=== PATIENT | female | born 1995 | race Asian ===

== ENCOUNTER 2017-08-09 19:22 | Emergency (ER) | payer OTHER ==
[~2017-08-09] VITALS: Ht 170.2 cm; Wt 75.8 kg
[2017-08-09 19:27] VITALS: TEMP 36.9; Ht 170.2 cm; Wt 75.8 kg
[2017-08-09] MEDS ORDERED: SODIUM CHLORIDE 0.9% 1000ML 1,000 ML IV STA (20:52)
[2017-08-09 21:14] LABS: MANUAL MICROSCOPIC REQUIRED? NO; REVIEW REQ? YES; URINE APPEARANCE CLEAR (CLEAR); URINE BILIRUBIN NEG (NEG); URINE COLOR YELLOW; URINE EPITHELIAL CELL AUTO >30 /lpf (0-5); URINE NITRITE NEG (NEG); URINE SPECIFIC GRAVITY 1.014 (1.000-1.030); UROBILINOGEN NEG (NEG); ZZUR CULT IF INDIC CLEAN CATCH NO
[2017-08-09 21:28] LABS: BASO % 0.4 %; BASO ABS # 0.03 K/uL (0-0.2); COMPLETE YES; EOS % 2.8 %; HEMATOCRIT 38.8 % (37-47); IG% 0.1 %; LYMPH ABS # 2.51 K/uL (1.2-3.4); MEAN CELL VOLUME 90.9 fL (80-100); MEAN CORPUSCULAR HEMOGLOBIN 31.4 pg (25-34); MEAN CORPUSCULAR HGB CONC 34.5 g/dl (32-36); MEAN PLATELET VOLUME 10.5 fL (7.4-10.4); NEUT % 57.7 %; PLATELET COUNT 198 K/uL (130-400); RED BLOOD COUNT 4.27 M/uL (4.2-5.4); WHITE BLOOD COUNT 7.61 K/uL (4.8-10.8)
[2017-08-09 21:53] LABS: ALT/SGPT 18 U/L (12-78); BLOOD UREA NITROGEN 10 mg/dl (7-18); BUN/CREATININE RATIO 12.8 (10-20); CALCIUM 8.8 mg/dl (8.5-10.1); CARBON DIOXIDE 27 mmol/L (21-32); CHLORIDE 107 mmol/L (98-107); CREATININE 0.75 mg/dl (0.60-1.20); GLUCOSE 95 mg/dl (70-99); POTASSIUM 3.7 mmol/L (3.5-5.1); SODIUM 140 mmol/L (136-145)
[2017-08-09 21:56] LABS: ALKALINE PHOSPHATASE 50 U/L (45-117); AST/SGOT 14 U/L (15-37)
--- NOTE | 2017-08-10 00:38 | EMERGENCY ROOM VISIT NOTE ---
History Report prepared by Maureen: Samantha Moeller Under the Supervision of: Dr. Cricket Garcia M.D. First contact with patient: 20:44 Chief Complaint: ABDOMINAL PAIN Stated Complaint: ABDOMINAL PAIN Nursing Triage Summary: pt c/o abd pain started last week, History of Present Illness The patient is a 22 year old female who presents to the Emergency Room with complaints of waxing and waning abdominal pain starting last week. She describes the pain as cramping. She decided to present to the ED today because the pain worsened today around 1830. Upon arrival the pain had improved. She currently only has some discomfort. She has never experienced these symptoms before. She notes that her last episode of abdominal pain occurred after eating this afternoon. It was not food out of the ordinary. She also had a headache and felt fatigued. She then has a bowel movement which was normal. She denies any fever, chills, cough, congestion, nausea, vomiting, diarrhea, dysuria, or back pain. She has been feeling well otherwise. She is a [employer] student. She is not sexually active and denies any chance of . Her last menstrual period started 3 weeks ago. Her cycle is typically 22-23 days long so she notes that she is due for her period. She normally does not get cramps before her period. Source of History: patient Onset: last week Position: abdomen Quality: cramping Timing: waxes/wanes Associated Symptoms: + headache, + fatigue, No fevers, No chills, No cough, No nausea, No vomiting, No back pain, No diarrhea, No urinary symptoms Note: Pt denies congestion. Review of Systems See HPI for pertinent positives and negatives. A total of ten systems were reviewed and were otherwise negative. Past Medical & Surgical Medical Problems: (1) No chronic problems Family History No pertinent family history stated. Social History Smoking Status: Never Smoker Occupation Status: [employer] student Current/Historical Medications No Active Prescriptions or Reported Meds Allergies Coded Allergies: No Known Allergies (Unverified , 08/09/17) Physical Exam Vital Signs Date Time Temp Pulse Resp B/P (MAP) Pulse Ox O2 Delivery O2 Flow Rate FiO2 08/10/17 00:55 77 18 131/71 96 08/09/17 22:27 71 18 95 08/09/17 22:01 123/84 08/09/17 21:57 68 15 100 08/09/17 21:52 67 17 100 08/09/17 21:22 69 18 100 08/09/17 21:05 71 08/09/17 21:04 69 14 124/69 99 Room Air 08/09/17 21:03 124/69 08/09/17 19:27 36.9 81 18 108/60 98 Room Air Physical Exam GENERAL: Awake, alert, well-appearing, in no distress HENT: Normocephalic, atraumatic. Oropharynx unremarkable. EYES: Normal conjunctiva. Sclera non-icteric. NECK: Supple. No nuchal rigidity. FROM. No JVD. RESPIRATORY: Clear to auscultation. CARDIAC: Regular rate, normal rhythm. Extremities warm and well perfused. Pulses equal. ABDOMEN: Soft, non-distended. No tenderness to palpation. No rebound or guarding. No masses. RECTAL: Deferred. MUSCULOSKELETAL: Chest examination reveals no tenderness. The back is symmetrical on inspection without obvious abnormality. There is no CVA tenderness to palpation. No joint edema. LOWER EXTREMITIES: Calves are equal size bilaterally and non-tender. No edema. No discoloration. NEURO: Normal sensorium. No sensory or motor deficits noted. SKIN: No rash or jaundice noted. Medical Decision & Procedures Laboratory Results 08/09/17 21:10 Red Blood Count 4.27, Mean Corpuscular Volume 90.9, Mean Corpuscular Hemoglobin 31.4, Mean Corpuscular Hemoglobin Concent 34.5, Mean Platelet Volume 10.5, Neutrophils (%) (Auto) 57.7, Lymphocytes (%) (Auto) 33.0, Monocytes (%) (Auto) 6.0, Eosinophils (%) (Auto) 2.8, Basophils (%) (Auto) 0.4, Neutrophils # (Auto) 4.39, Lymphocytes # (Auto) 2.51, Monocytes # (Auto) 0.46, Eosinophils # (Auto) 0.21, Basophils # (Auto) 0.03 08/09/17 21:10 Test 08/09/17 20:44 08/09/17 21:10 Urine Color YELLOW Urine Appearance CLEAR (CLEAR) Urine pH 8.0 (4.5-7.5) Urine Specific [place] 1.014 (1.000-1.030) Urine Protein NEG (NEG) Urine Glucose (UA) NEG (NEG) Urine Ketones TRACE (NEG) Urine Occult Blood NEG (NEG) Urine Nitrite NEG (NEG) Urine Bilirubin NEG (NEG) Urine Urobilinogen NEG (NEG) Urine Leukocyte Esterase TRACE (NEG) Urine WBC (Auto) 1-5 /hpf (0-5) Urine RBC (Auto) 0-4 /hpf (0-4) Urine Hyaline Casts (Auto) 0 /lpf (0-5) Urine Epithelial Cells (Auto) >30 /lpf (0-5) Urine Bacteria (Auto) NEG (NEG) Urine Renal Epithelial Cells /lpf (0-5) Urine Test NEG (NEG) White Blood Count 7.61 K/uL (4.8-10.8) Red Blood Count 4.27 M/uL (4.2-5.4) Hemoglobin 13.4 g/dL (12.0-16.0) Hematocrit 38.8 % (37-47) Mean Corpuscular Volume 90.9 fL (80-100) Mean Corpuscular Hemoglobin 31.4 pg (25-34) Mean Corpuscular Hemoglobin Concent 34.5 g/dl (32-36) Platelet Count 198 K/uL (130-400) Mean Platelet Volume 10.5 fL (7.4-10.4) Neutrophils (%) (Auto) 57.7 % Lymphocytes (%) (Auto) 33.0 % Monocytes (%) (Auto) 6.0 % Eosinophils (%) (Auto) 2.8 % Basophils (%) (Auto) 0.4 % Neutrophils # (Auto) 4.39 K/uL (1.4-6.5) Lymphocytes # (Auto) 2.51 K/uL (1.2-3.4) Monocytes # (Auto) 0.46 K/uL (0.11-0.59) Eosinophils # (Auto) 0.21 K/uL (0-0.5) Basophils # (Auto) 0.03 K/uL (0-0.2) RDW Standard Deviation 41.0 fL (36.4-46.3) RDW Coefficient of Variation 12.5 % (11.5-14.5) Immature Granulocyte % (Auto) 0.1 % Immature Granulocyte # (Auto) 0.01 K/uL (0.00-0.02) Anion Gap 6.0 mmol/L (3-11) Est Creatinine Clear Calc Drug Dose 125.0 ml/min Estimated GFR () 131.1 Estimated GFR (Non- 113.1 BUN/Creatinine Ratio 12.8 (10-20) Calcium Level 8.8 mg/dl (8.5-10.1) Total Bilirubin 0.4 mg/dl (0.2-1) Direct Bilirubin < 0.1 mg/dl (0-0.2) Aspartate Amino Transf (AST/SGOT) 14 U/L (15-37) Alanine Aminotransferase (ALT/SGPT) 18 U/L (12-78) Alkaline Phosphatase 50 U/L (45-117) Total Protein 7.5 gm/dl (6.4-8.2) Albumin 3.7 gm/dl (3.4-5.0) Lipase 121 U/L (73-393) Laboratory results reviewed by me Medications Administered Medications (Trade) Dose Ordered Sig/Barrera Route Start Time Stop Time Status Last Admin Dose Admin Sodium Chloride 1,000 ml @ 999 mls/hr Q1H1M STAT IV 08/09/17 20:52 08/09/17 21:52 DC 08/09/17 21:16 999 MLS/HR ED Course 2050: The patient was evaluated in room B6. A complete history and physical exam was performed. 2051: NSS 1000 ml @ 999 mls/hr IV. 001: I reevaluated the patient. I discussed results and discharge instructions : She verbalized understanding and agreement. The patient is ready for discharge. Medical Decision I reviewed the patient's past medical history, medications, and the nursing notes as described above. Differential diagnosis: ovarian cyst, UTI, endometriosis, gastritis, gastroenteritis, . The patient is a 22-year-old woman who presents emergency Department with 1 week of intermittent abdominal pain and episode of worsening around 7 PM tonight. History of present illness. However on arrival the patient reports that the pain had resolved and denies any symptoms at this time. He is well- appearing, afebrile with stable vital signs. Soft nontender nondistended. Patient preferring to decline pelvic exam at this time and has appointment for follow-up with [facility] on Saturday. Given well-appearing and normal exam this is reasonable. Labs unremarkable and the patient continued to be without symptoms. Findings and plan for follow-up d/w patient. Patient agreeable and d/c'd per discharge instructions. Medication Reconcilliation Current Medication List: was personally reviewed by me Blood Pressure Screening Patient's blood pressure: Normal blood pressure Blood pressure disposition: Did not require urgent referral Impression Primary Impression: Abdominal pain Scribe Attestation The scribe's documentation has been prepared under my direction and personally reviewed by me in its entirety. I confirm that the note above accurately reflects all work, treatment, procedures, and medical decision making performed by me. Departure Information Dispostion Home / Self-Care Prescriptions No Active Prescriptions or Reported Meds Referrals No Doctor, Assigned (PCP) Patient Instructions Abdominal Pain, My [facility] Additional Instructions Please follow up with the [facility] on Saturday as scheduled for re- evaluation. The cause of your symptoms is unclear at this time. Otherwise, your exam and lab results did not show signs of an emergent condition at this time. Drink plenty of fluids to ensure hydration. Return to the emergency department for worsening symptoms as described in the accompanying instructions.
[2017-08-10 00:55] VITALS: BP 131/71; PULSE 77; O2SAT 96
== END 2017-08-10 00:55 | disposition home or self-care (01) ==
LOC: C.EDB 19:24
DX: R10.9 Unspecified abdominal pain (principal)